=== PATIENT | female | born 1945 | race Caucasian/White ===

== ENCOUNTER 2017-07-06 18:57 | Emergency (ER) | payer OTHER, BC ==
[2017-07-06] MEDS ORDERED: ACETAMINOPHEN 500 MG TAB ONE (19:15)
[2017-07-06] MEDS ORDERED: NS 1,000 ML IV ONE (19:17)
[2017-07-06] MEDS ORDERED: ACETAMINOPHEN 500 MG TAB PO ONE ×2 (19:18)
[2017-07-06 19:37] LABS: % IMMATURE GRANULYOCYTES 0.5 % (0.0-1.1); ADD DIFF? NO; ADD MORPH? NO; ADD SCAN? NO; ATYPICAL LYMPHOCYTE FLAG 0 (0-99); FRAGMENT RBC FLAG 0 (0-99); HEMATOCRIT 35.7 % (38.0-47.0); HEMOGLOBIN 11.7 g/dL (12.6-16.3); LEFT SHIFT FLG 0 (0-99); LIPEMIA HEMOLYSIS FLAG 80 (0-99); MEAN CELL HEMOGLOBIN 29.1 pg (27.9-34.1); MEAN CELL HEMOGLOBIN CONCENTR. 32.8 g/dL (32.4-36.7); MEAN CELL VOLUME 88.8 fL (81.5-99.8); MEAN PLATELET VOLUME 11.4 fL (8.7-11.7); PLATELET CLUMPS FLAG 0 (0-99); PLATELET COUNT 156 10^3/uL (150-400); RED BLOOD CELL COUNT 4.02 10^6/uL (4.18-5.33); RED CELL DISTRIBUTION WIDTH 13.2 % (11.5-15.2)
[2017-07-06] MEDS ORDERED: AZITHROMYCIN 250 MG TAB PO ONE (19:52)
[2017-07-06 19:53] LABS: MICROCYTES 1+; PLATELET ESTIMATE ADEQUATE (ADEQ)
[2017-07-06 19:54] LABS: ANION GAP 13 mEq/L (8-16); CALCIUM 8.8 mg/dL (8.5-10.4); CARBON DIOXIDE 23 mEq/l (22-31); CHLORIDE 98 mEq/L (97-110); CREATININE 0.7 mg/dL (0.6-1.0); GLOMERULAR FILTRATION RATE > 60; GLUCOSE 86 mg/dL (70-100); POTASSIUM 4.1 mEq/L (3.5-5.2); SODIUM 134 mEq/L (134-144)
[2017-07-06 20:38] VITALS: RESP 16
[2017-07-06 21:11] VITALS: O2SAT 92
--- NOTE | 2017-07-06 21:21 | EDPHY ---
H & P Stated Complaint: cough,fever,congestion for 4 days Time Seen by Provider: 07/06/17 19:16 HPI/ROS: This patient presents with a 4 day history of a cough occasionally productive of sputum and a 12 hour history of fevers. The patient flew here from [place] with her to visit their son and reports onset of symptoms 24 hours prior to leaving [place]. She denies any other associated symptoms except for some mild subjective fevers the 1st day of the illness. Her drove her here by private vehicle for further evaluation. ROS: Constitutional: She denies rigors. She does report fatigue today that is mild. HEENT: No nasal congestion. No sore throat. No ear pain. No dysphonia. Pulmonary: No pleuritic pain. No respiratory distress. She did notice any significant dyspnea. Cardiovascular: She denies heart palpitations. No chest pain. No lower extremity swelling or calf pain. GI: No nausea or vomiting : No complaints Integumentary: No complaints Endocrine: No complaints Completely symptoms otherwise negative Source: Patient Exam Limitations: No limitations - Personal History Current Tetanus Diphtheria and Acellular Pertussis (TDAP): Yes Tetanus Vaccine Date: unsure - Medical/Surgical History PMH: CLL in remission She reports that her baseline white blood cell count tends to run between 20 and 30,000. She has this checked every 6 months in the most recent check was 2 months ago baseline for her. Hx Asthma: No Hx Chronic Respiratory Disease: No Hx Diabetes: No Hx Cardiac Disease: No Hx Renal Disease: No Hx Cirrhosis: No Hx Alcoholism: No Hx HIV/AIDS: No Hx Splenectomy or Spleen Trauma: No Other PMH: CLL, skin cancers,pneumonia - Family History Significant Family History: No pertinent family hx - Social History Smoking Status: Former smoker Alcohol Use: Rarely Drug Use: None Additional Social History: Visiting from [place] as per HPI. She is a NICU nurse - Physical Exam Exam: Vital signs initially notable for fever and tachycardia. Room air O2 sat 90-91% . Normal respiratory rate. General Appearance: Alert, no distress. Eyes: Pupils equal and round no pallor or injection. ENT, Mouth: Mucous membranes moist. Respiratory: Rales at the right lung base. Otherwise clear to auscultation bilaterally. No respiratory distress. Cardiovascular: Tachycardic with no murmur gallop rub. No leg swelling or tenderness. Gastrointestinal: Abdomen is soft and nontender, no masses, bowel sounds normal. Neurological: GCS 15 Skin: Warm and dry, no rashes. Musculoskeletal: Neck is supple nontender. Extremities are symmetrical, full range of motion. Psychiatric: Mood and affect normal DIFFERENTIAL DIAGNOSIS: After history and physical exam differential diagnosis was considered for community-acquired pneumonia, influenza, other viral illness , bronchitis Constitutional: Initial Vital Signs Temperature (C) 39.4 C H 07/06/17 19:06 Heart Rate 124 H 07/06/17 19:06 Respiratory Rate 16 07/06/17 19:06 Blood Pressure 130/63 H 07/06/17 19:06 O2 Sat (%) 90 L 07/06/17 19:06 O2 Delivery Mode Room Air O2 (L/minute) 2 Allergies/Adverse Reactions: bacitracin Allergy (Verified 07/06/17 19:05) Home Medications: Medication Instructions Recorded Azithromycin [Zithromax] 250 mg PO DAILY #4 tab 07/06/17 [place]mb[place] 07/06/17 Medical Decision Making - Diagnostics Imaging Results: Chest x-ray: Right lower lobe infiltrate consistent with pneumonia. Imaging: I viewed and interpreted images myself ED Course/Re-evaluation: IV normal saline bolus Blood cultures drawn and pending Flu swab is negative Rocephin IV and Zithromax p.o. Patient ambulated after antibiotics and fluid in feels well without significant dyspnea, lightheadedness, nausea or vomiting. I reviewed the radiologist reading of the chest x-ray which also notes a small left basilar infiltrate. [place] [id number] with no significant shift in the differential and no significant atypical appearing cells. Chemistries are normal. Lactate is normal. After Tylenol antipyretic and fluids, patient is afebrile and tachycardia has resolved. Findings do not suggest severe sepsis. No septic shock. She responded well to fluids. While the patient initially had numbers consistent with sepsis (but not severe sepsis), after treatment sepsis resolved with physiology returned to normal with exception of borderline hypoxia. I did offer admission to this patient. However, given her significant improvement she prefers discharge home declines admission at this time. I spoke with the outpatient physician on-call who will see the patient 8:00 a.m. on Sunday in her office. Patient understands strict precautions to return medially the emergency department should she have any worsening or significant recurrence of her symptoms despite the treatment plan. Patient is comfortable at the time discharge without significant coughing. - Data Points Laboratory Results: Laboratory Results 07/06/17 19:32 07/06/17 19:32 Medications Given: Discontinued Medications Acetaminophen (Tylenol) 1,000 mg PO EDNOW ONE Stop: 07/06/17 19:19 Last Admin: 07/06/17 19:20 Dose: 1,000 mg Acetaminophen (Tylenol) 1,000 mg PO EDNOW ONE Stop: 07/06/17 19:19 Last Admin: 07/06/17 19:22 Dose: Not Given Azithromycin (Zithromax) 500 mg PO EDNOW ONE PRN Reason: Protocol Stop: 07/06/17 19:53 Last Admin: 07/06/17 20:16 Dose: 500 mg Sodium Chloride (Ns) 1,000 mls @ 0 mls/hr IV ONCE ONE; Wide Open PRN Reason: Protocol Stop: 07/06/17 19:18 Last Admin: 07/06/17 19:55 Dose: 1,000 mls Ceftriaxone Sodium 1 gm/ (Sodium Chloride) 100 mls @ 200 mls/hr IV EDNOW ONE PRN Reason: Protocol Stop: 07/06/17 20:21 Last Admin: 07/06/17 20:14 Dose: 100 mls Departure - Departure Disposition: Home, Routine, Self-Care Clinical Impression: Community acquired pneumonia, CLL (chronic lymphocytic leukemia) Condition: Good Instructions: Community Acquired Pneumonia (ED) Additional Instructions: Diagnosis: Community-acquired pneumonia Plan: Wear a face mask when in close proximity to loved ones over the next 24 hours to 48 hours. Drink plenty fluids Zithromax antibiotic Call primary physician listed below on Sunday to arrange a close follow- up appointment for recheck. If you develop worsening symptoms despite the treatment plan, return to to the emergency department for further evaluation Referrals: NONE *PRIMARY CARE P,. [Primary Care Provider] - As per Instructions Micike Santiago DO [Doctor of Osteopathy] - As per Instructions Prescriptions: Azithromycin [Zithromax] 250 mg PO DAILY #4 tab
[2017-07-06 21:41] VITALS: BP 96/40; PULSE 92; TEMP 98.4
== END 2017-07-06 21:43 | disposition home or self-care (01) ==
LOC: CED 18:57
DX: J18.9 Pneumonia, unspecified organism (principal); C91.11 Chronic lymphocytic leukemia of B-cell type in remission; Z87.891 Personal history of nicotine dependence
CPT/HCPCS: 71020; 96365; 99284; J0696; 80048-PO; 83605-PO; 85025-PO; 87400-PO